=== PATIENT | male | born 1980 | race African-American/Black ===

== ENCOUNTER 2018-09-24 19:41 | Emergency (ER) | payer SELFPAY ==
--- NOTE | 2018-09-24 20:50 | ER ---
Nurse's Notes [facility] Name: Heather Quintana Age: 38 yrs Sex: Male : 1980 Arrival Date: 09/24/2018 Time: 19:45 Bed Waiting Private MD: Diagnosis: ED Course: 09/24 19:45 Patient arrived in ED. es 20:08 Patient's name was called from ER lobby. No response. 20:49 Patient's name was called from ER lobby. No response. Unable to locate patient. Will bb disposition as left without being seen by a provider. Administered Medications: No medications were administered Outcome: 20:50 Patient left the ED. bb Signatures: Gita Gillespie, RN RN Corin Barraza Brenda RN RN bb
== END 2018-09-24 20:50 | disposition left against medical advice (07) ==
LOC: ER 19:41
DX: Z53.21 Procedure and treatment not carried out due to patient leaving prior to being seen by health care provider (principal)

== ENCOUNTER 2020-02-20 16:13 | Emergency (ER) | payer SELFPAY ==
--- OUTSIDE RECORDS SUMMARY | 2020-02-20 16:16 | XMS REPORT | Continuity of Care Document ---
:1980 Author Organization [facility] t Address [address] [place] [address] Care Team Providers Name Role Phone Unavailable Unavailable Unavailable Payers Payer Name Policy Type Policy Number Effective Date Expiration Date S ource Problems This patient has no known problems. Allergies, Adverse Reactions, Alerts Allergy Allergy Status Severity Reaction(s) Onset Inactive Treating Comm ents Source Name Type Date Date Clinician No Known DA Active U [facility] All[facility]ie 6-10 Pearlan s 00:00: d 00 [facility] Medications This patient has no known medications. Procedures This patient has no known procedures. Encounters Start End Encounter Admission Attending Care Care Encounter Source Date/Time Date/Time Type Type Clinicians Facility Department ID 2017-10-24 2017-10-25 Outpatient [facility] [id number] [address] [place] [address] 00:00:00 00:00:00 [facility] Results Test Description Test Time Test Comments Results Result Comments Source CBC W/AUTO DIFF 2018-12-13 22:36:00 Test Item Value Reference Range Interpretation Comme nts WHITE BLOOD CELL (test code = 4.0 K/mm3 3.5-11.0 N WBC) RED BLOOD CELL (test code = RBC) 4.53 M/mm3 4.70-6.10 L HEMOGLOBIN (test code = HGB) 10.9 G/DL 12.3-15.9 L HEMATOCRIT (test code = HCT) 33.7 % 35.8-46.7 L MEAN CELL VOLUME (test code = 74.4 Fl 86.3-98.9 L MCV) MEAN CELL HGB (test code = MCH) 24.1 pg 28.9-34.4 L MEAN CELL HGB CONCETRATION (test 32.3 G/DL 32.1-34.5 N code = MCHC) RED CELL DISTRIBUTION WIDTH 15.8 SD 11.5-14.5 H (test code = RDW) PLATELET COUNT (test code = PLT) 126.0 K/mm3 150-450 L MEAN PLATELET VOLUME (test code 10.70 fL 7.0-9.6 H = MPV) NEUTROPHIL % (test code = NT%) 33.6 % 40-76 L LYMPHOCYTE % (test code = LY%) 42.1 % 20.5-51.1 N MONOCYTE % (test code = MO%) 13.4 % 1.7-9.3 H EOSINOPHIL % (test code = EO%) 10.6 % 0.0-6.0 H BASOPHIL % (test code = BA%) 0.3 % 0.0-2.0 N NEUTROPHIL # (test code = NT#) 1.34 K/mm3 1.8-7.6 L LYMPHOCYTE # (test code = LY#) 1.7 K/mm3 0.6-3.0 N MONOCYTE # (test code = MO#) 0.5 K/mm3 0.2-1.5 N EOSINOPHIL # (test code = EO#) 0.4 K/mm3 0.0-0.4 N BASOPHIL # (test code = BA#) 0.0 K/mm3 0.0-0.2 N MANUAL DIFF REQUIRED (test code NO DIFF/SCN CRITERIA SLIDE REVIEW CONSISTANT WITH = MDIFF) AUTO DIFFERENTI AL. COMPREHENSIVE METABOLIC [id number] 22:22:00 Test Item Value Reference Range Interpretation Comments SODIUM (test code = NA) 139 mmol/L 134-147 N POTASSIUM (test code = 3.4 mmol/L 3.4-5.0 N K) CHLORIDE (test code = 106 mmol/L 100-108 N CL) CARBON DIOXIDE (test 27 mmol/L 21-32 N code = CO2) ANION GAP (test code = 6.0 GAP calc 4.0-15.0 N GAP) GLUCOSE (test code = 89 MG/DL 70-110 N GLU) BLOOD UREA NITROGEN 16 MG/DL 7-18 N (test code = BUN) GLOMERULAR FILTRATION >=60 max estimate >60 RATE (test code = GFR) estGFR CREATININE (test code = 1.0 MG/DL 0.8-1.3 N CREAT) TOTAL PROTEIN (test code 8.3 G/DL 6.4-8.2 H = PROT) ALBUMIN (test code = 3.3 G/DL 3.4-5.0 L ALB) GLOBULIN (test code = 5.0 GM/dL GLOB) ALBUMIN/GLOBULIN RATIO 0.7 RATIO 1.2-2.2 L (test code = A/G) CALCIUM (test code = CA) 8.5 MG/DL 8.5-10.1 N BILIRUBIN TOTAL (test 0.30 MG/DL 0.2-1.2 N code = BILT) SGOT/AST (test code = 27 Unit/L 15-37 N AST) SGPT/ALT (test code = 21 Unit/L 12-78 N ALT) ALKALINE PHOSPHATASE 56 Unit/L 50-136 N TOTAL (test code = ALKP) Completed by Nursing: [id number] 22:22:00 Test Item Value Reference Range Interpretation Comments LIPASE (test code = LIP) 117 Unit/L 114-286 N Completed by Nursing: [id number] 22:22:00 Test Item Value Reference Range Interpretation Comments TROPONIN-I (test < 0.015 NG/ML 0.000-0.045 N Negative: </= 0.045 code = TROPI) Positive: >/= 0.046 Correlation wit h serial results, other cardiac markers, and cl inical findings is nec essary to determine the c linical significance of this result. Quantit ative results using d ifferent methodologies s hould not be compared to one another as nume rical results may perry yby method. Completed by Nursing: NO- XR CHEST 1 [id number] 22:20:00 Name: LAURIE ALONSO : 1980 Age/S: 38 / M [id number] Unit #: [id number] Loc: [place] [address] Phys: Brandon Elizondo MD Acct: [id number] Dis Date: Status: REG ER PHONE #: [phone] Exam Date: 12/13/2018 2201 FAX #: Reason: chest pain, left sided EXAMS: CPT: [id number] XR CHEST 1 V [id number] Fluoro Time: DAP (Gy m2): Air Kerma (mGy): EXAM: - XR CHEST 1 V HISTORY: Chest pain. COMPARISON: None available time of interpretation. FINDINGS: Single AP view of the chest is provided. Heart size and vascularity are within normal limits. The lungs are clear of focal consolidation. No effusion, pneumothorax, or acute osseous abnormality. IMPRESSION: No radiographic evidence of acute cardiopulmonary process. at 2220 Reported and signed by: Girish Grijalva M.D. CC: Brandon Elizondo MD PAGE1 Signed Report Name: LAURIE ALONSOland : 1980 Age/S: 38 / M [address] Unit #: [id number] Loc: [place] [address] Phys: Brandon Elizondo MD Acct: [id number] Dis Date: Status: REG ER PHONE #: [phone] Exam Date: 12/13/2018 2200 FAX #: Reason: chest pain, left sided EXAMS: CPT: [id number] XR CHEST 1 V [id number] Fluoro Time: DAP (Gy m2): Air Kerma (mGy): <Continued> Technologist: Javier Winter RT(R)(CT); ... Trnscb Date/Time: 12/13/2018 (2219) [email or web address] Orig Print D/T: S: 12/13/2018 (0) PAGE 2 Signed ReportCB W/AUTO [id number] 22:06:00 Test Item Value Reference Range Interpretation Comments WHITE BLOOD CELL (test code = 4.0 K/mm3 3.5-11.0 N WBC) RED BLOOD CELL (test code = RBC) 4.53 M/mm3 4.70-6.10 L HEMOGLOBIN (test code = HGB) 10.9 G/DL 12.3-15.9 L HEMATOCRIT (test code = HCT) 33.7 % 35.8-46.7 L MEAN CELL VOLUME (test code = 74.4 Fl 86.3-98.9 L MCV) MEAN CELL HGB (test code = MCH) 24.1 pg 28.9-34.4 L MEAN CELL HGB CONCETRATION (test 32.3 G/DL 32.1-34.5 N code = MCHC) RED CELL DISTRIBUTION WIDTH (test 15.8 SD 11.5-14.5 H code = RDW) PLATELET COUNT (test code = PLT) 126.0 K/mm3 150-450 L MEAN PLATELET VOLUME (test code = 10.70 fL 7.0-9.6 H MPV) NEUTROPHIL % (test code = NT%) % 40-76 L LYMPHOCYTE % (test code = LY%) % 20.5-51.1 N MONOCYTE % (test code = MO%) % 1.7-9.3 H EOSINOPHIL % (test code = EO%) % 0.0-6.0 H BASOPHIL % (test code = BA%) % 0.0-2.0 N NEUTROPHIL # (test code = NT#) K/mm3 1.8-7.6 L LYMPHOCYTE # (test code = LY#) K/mm3 0.6-3.0 N MONOCYTE # (test code = MO#) K/mm3 0.2-1.5 N EOSINOPHIL # (test code = EO#) K/mm3 0.0-0.4 N BASOPHIL # (test code = BA#) K/mm3 0.0-0.2 N MANUAL DIFF REQUIRED (test code = DIFF/SCN CRITERIA MDIFF)
--- NOTE | 2020-02-20 16:27 | ER ---
Nurse's Notes [facility] Name: Heather Quintana Age: 39 yrs Sex: Male : 1980 Arrival Date: 02/20/2020 Time: 16:16 Bed 15 Private MD: Diagnosis: Chest pain, unspecified Presentation: 02/19 16:24 Chief complaint: [place] [employer], he was going to [place] longterm started having anxiety c/o tw2 chest pain, states he is better now and is going to [facility]. Coronavirus screen: Client denies travel out of the [place] in the last 14 days. At this time, the client does not indicate any symptoms associated with coronavirus-19. Ebola Screen: Patient denies travel to an Ebola-affected area in the 21 days before illness onset. Initial Sepsis Screen: Does the patient meet any 2 criteria? No. Patient's initial sepsis screen is negative. Does the patient have a suspected source of infection? No. Patient's initial sepsis screen is negative. Risk Assessment: Do you want to hurt yourself or someone else? Patient reports no desire to harm self or others. Onset of symptoms was February 20, 2020. 16:24 Method Of Arrival: Law Enforcement: [facility] tw2 16:24 Acuity: JERONIMO 3 tw2 16:29 Note provider Tressa Pelaez PA at bedside at this time. tw2 Triage Assessment: 16:26 General: Appears in no apparent distress. Behavior is calm, cooperative, appropriate tw2 for age. Pain: Denies pain. EENT: No signs and/or symptoms were reported regarding the EENT system. Neuro: Level of Consciousness is awake, alert, obeys commands, Oriented to person, place, time, situation. Cardiovascular: Denies chest pain, shortness of breath, Heart tones S1 S2 Patient's skin is warm and dry. Respiratory: Airway is patent Respiratory effort is even, unlabored, Respiratory pattern is regular, symmetrical, Breath sounds are clear bilaterally. GI: No signs and/or symptoms were reported involving the gastrointestinal system. Abdomen is flat, Bowel sounds present X 4 quads. : No signs and/or symptoms were reported regarding the genitourinary system. Derm: No signs and/or symptoms reported regarding the dermatologic system. Musculoskeletal: Range of motion: intact in all extremities. Historical: - Allergies: 16:28 No Known Allergies; tw2 - Home Meds: 16:28 None [Active]; tw2 - PMHx: 16:28 Anxiety; chest pain; clausterphobic; Depression; Hernia; tw2 - Immunization history:: Adult Immunizations. - Social history:: Smoking status: . Screenin: Abuse screen: Denies threats or abuse. Nutritional screening: No deficits noted. tw2 Tuberculosis screening: No symptoms or risk factors identified. Fall Risk None identified. Assessment: 16:16 Reassessment: pt states "i feel no pain now i am just ready to go". tw2 16:24 Pain: Pain does not radiate. Pain began suddenly. tw2 16:26 Reassessment: see triage assessment. tw2 16: Reassessment:. tw2 16:39 Reassessment: Patient appears in no apparent distress at this time. No changes from tw2 previously documented assessment. Patient and/or family updated on plan of care and expected duration. Pain level reassessed. Patient is alert, oriented x 3, equal unlabored respirations, skin warm/dry/pink. Vital Signs: 16:24 BP 134 / 96; Pulse 71; Resp 17; Temp 98.1; Pulse Ox 98% on R/A; Pain 0/10; tw2 ED Course: 16:16 Patient arrived in ED. tw2 16:22 Benigno Flores PA is PHCP. jr8 16:22 Ramón Hills MD is Attending Physician. jr8 16:24 Tamra Simms RN is Primary Nurse. tw2 16:24 Arm band placed on. tw2 16:26 Triage completed. tw2 16:28 Bed in low position. Call light in reach. equipment monitor phototypesetting on. Pulse ox on. NIBP on. tw2 16:39 No provider procedures requiring assistance completed. Patient did not have IV access tw2 during this emergency room visit. Patient maintains SpO2 saturation greater than 95% on room air. Administered Medications: No medications were administered Outcome: 16: Discharge ordered by . jr8 16:39 Discharged to Law Enforcement tw2 16:39 Condition: stable 16:39 Discharge instructions given to patient, police, Instructed on discharge instructions, follow up and referral plans. Demonstrated understanding of instructions, follow-up care. 16:39 Patient left the ED. tw2 Signatures: Benigno lFores PA PA jr8 Tamra Simms RN RN tw2 Corrections: (The following items were deleted from the chart) 19:14 16:28 Reassessment: see triage assessment tw2 tw2
--- NOTE | 2020-02-20 16:27 | EDPHYS ---
Physician Documentation [facility] Name: Heather Quintana Age: 39 yrs Sex: Male : 1980 Arrival Date: 02/20/2020 Time: 16:16 Bed 15 Private MD: ED Physician Ramón Hills HPI: 02/19 16:24 This 39 yrs old Black Male presents to ER via Unassigned with complaints of Chest Pain jr8 > 30 y/o. 16:24 The patient or guardian reports chest pain that is located primarily in the substernal jr8 area. The pain does not radiate. Associated signs and symptoms: The patient has no apparent associated signs or symptoms. The chest pain is described as sharp. Duration: The patient or guardian reports a single episode, that is now resolved. Modifying factors: The symptoms are alleviated by rest, the symptoms are aggravated by emotionally stressful situations. Severity of pain: At its worst the pain was mild in the emergency department the pain has resolved. The patient has not experienced similar symptoms in the past. The patient has not recently seen a physician. Patient brought in by PD for medical clearance after he started to complain of chest pain. Patient stated that he is now better and feels that it was anxiety related. No symptoms at this time and wants to be discharged . Historical: - Allergies: 16:28 No Known Allergies; tw2 - Home Meds: 16:28 None [Active]; tw2 - PMHx: 16:28 Anxiety; chest pain; clausterphobic; Depression; Hernia; tw2 - Immunization history:: Adult Immunizations. - Social history:: Smoking status: . ROS: 16:24 Eyes: Negative for injury, pain, redness, and discharge, ENT: Negative for injury, jr8 pain, and discharge, Neck: Negative for injury, pain, and swelling, Respiratory: Negative for shortness of breath, cough, wheezing, and pleuritic chest pain, Abdomen/GI: Negative for abdominal pain, nausea, vomiting, diarrhea, and constipation, Back: Negative for injury and pain, MS/Extremity: Negative for injury and deformity, Skin: Negative for injury, rash, and discoloration, Neuro: Negative for headache, weakness, numbness, tingling, and seizure. 16:24 Cardiovascular: Positive for chest pain, Negative for orthopnea, palpitations, paroxysmal nocturnal dyspnea. Exam: 16:24 Eyes: Pupils equal round and reactive to light, extra-ocular motions intact. Lids and jr8 lashes normal. Conjunctiva and sclera are non-icteric and not injected. Cornea within normal limits. Periorbital areas with no swelling, redness, or edema. ENT: Nares patent. No nasal discharge, no septal abnormalities noted. Tympanic membranes are normal and external auditory canals are clear. Oropharynx with no redness, swelling, or masses, exudates, or evidence of obstruction, uvula midline. Mucous membranes moist. Neck: Trachea midline, no thyromegaly or masses palpated, and no cervical lymphadenopathy. Supple, full range of motion without nuchal rigidity, or vertebral point tenderness. No Meningismus. Cardiovascular: Regular rate and rhythm with a normal S1 and S2. No gallops, murmurs, or rubs. Normal PMI, no JVD. No pulse deficits. Respiratory: Lungs have equal breath sounds bilaterally, clear to auscultation and percussion. No rales, rhonchi or wheezes noted. No increased work of breathing, no retractions or nasal flaring. Abdomen/GI: Soft, non-tender, with normal bowel sounds. No distension or tympany. No guarding or rebound. No evidence of tenderness throughout. Back: No spinal tenderness. No costovertebral tenderness. Full range of motion. Skin: Warm, dry with normal turgor. Normal color with no rashes, no lesions, and no evidence of cellulitis. MS/ Extremity: Pulses equal, no cyanosis. Neurovascular intact. Full, normal range of motion. Neuro: Awake and alert, GCS 15, oriented to person, place, time, and situation. Cranial nerves II-XII grossly intact. Motor strength 5/5 in all extremities. Sensory grossly intact. Cerebellar exam normal. Normal gait. Vital Signs: 16:24 BP 134 / 96; Pulse 71; Resp 17; Temp 98.1; Pulse Ox 98% on R/A; Pain 0/10; tw2 MDM: 16:22 Patient medically screened. jr8 16:26 ESTEFANI Risk Score: TOTAL SCORE = 1. Data reviewed: vital signs, nurses notes, EKG, and as jr8 a result, I will discharge patient. Data interpreted: Pulse oximetry: on room air is 100 %. Interpretation: normal. Counseling: I had a detailed discussion with the patient and/or guardian regarding: the historical points, exam findings, and any diagnostic results supporting the discharge/admit diagnosis, the need for outpatient follow up, a family practitioner, to return to the emergency department if symptoms worsen or persist or if there are any questions or concerns that arise at home. 02/19 16:26 Order name: EKG; Complete Time: 16:26 jr8 02/19 16:26 Order name: EKG - Nurse/Tech; Complete Time: 16:38 jr8 Administered Medications: No medications were administered Disposition: 17:32 Co-signature as Attending Physician, Ramón Hills MD. rn Disposition: 02/20/20 16:26 Discharged to Home. Impression: Chest pain, unspecified. - Condition is Stable. - Discharge Instructions: Nonspecific Chest Pain. - Medication Reconciliation Form, Thank You Letter, Antibiotic Education, Prescription Opioid Use form. - Follow up: Private Physician; When: As needed; Reason: Recheck today's complaints, Continuance of care, Re-evaluation by your physician. - Problem is new. - Symptoms are resolved. Signatures: Ramón Hills MD MD rn Roszak, Josh, PA PA jr8 Tamra Simms RN RN tw2 Corrections: (The following items were deleted from the chart) 16:39 16:26 02/20/2020 16:26 Discharged to Home. Impression: Chest pain, unspecified. tw2 Condition is Stable. Forms are Medication Reconciliation Form, Thank You Letter, Antibiotic Education, Prescription Opioid Use. Follow up: Private Physician; When: As needed; Reason: Recheck today's complaints, Continuance of care, Re-evaluation by your physician. Problem is new. Symptoms are resolved. jr8
[2020-02-20 17:05] VITALS: BP 134/96; TEMP 98.1; O2SAT 98
--- NOTE | 2020-02-22 07:43 | EKG ---
Test Date: 2020-02-20 Test Time: 16:34:04 Desizing Machine Offbearer: MARK MEASUREMENT RESULTS: Intervals: Rate: 80 AR: 100 QRSD: 102 QT: 372 QTc: 429 [place]: P: 50 AR: 100 QRS: 64 T: 61 INTERPRETIVE STATEMENTS: Sinus rhythm with short AR Otherwise normal ECG Compared to ECG 03/13/2017 01:15:21 Short AR interval now present Right-axis deviation no longer present Incomplete right bundle-branch block no longer present Electronically Signed On 02-22-20 07:40:07 CDT by Ephraim Rodriguez
== END 2020-02-20 16:39 | disposition home or self-care (01) ==
LOC: ER 16:13
DX: R07.9 Chest pain, unspecified (principal); F41.9 Anxiety disorder, unspecified
CPT/HCPCS: 93005; 99284

== ENCOUNTER 2020-03-19 03:43 | Emergency (ER) | payer SELFPAY ==
--- OUTSIDE RECORDS SUMMARY | 2020-03-19 03:45 | XMS REPORT | Continuity of Care Document ---
:[address] [facility] t Address [address] [place] [address] Care Team Providers Name Role Phone Unavailable Unavailable Unavailable Payers Payer Name Policy Type Policy Number Effective Date Expiration Date S ource Problems This patient has no known problems. Allergies, Adverse Reactions, Alerts Allergy Allergy Status Severity Reaction(s) Onset Inactive Treating Comm ents Source Name Type Date Date Clinician No Known DA Active U [facility] Allergie 6-10 [place] s 00:00: d 00 [facility] Medications This patient has no known medications. Procedures This patient has no known procedures. Encounters Start End Encounter Admission Attending Care Care Encounter Source Date/Time Date/Time Type Type Clinicians Facility Department ID 2017-10-24 2017-10-25 [facility] [id number] [address] [place] [address] 00:00:00 00:00:00 [facility] Results Test Description Test Time Test Comments [...] = MDIFF) AUTO DIFFERENTI AL. COMPREHENSIVE METABOLIC [id number] 22:22:00 Test Item Value Reference Range Interpretation [...] (test code = ALKP) Completed by Nursing: [id number] 22:22:00 Test Item Value Reference Range Interpretation Comments LIPASE (test code = LIP) 117 Unit/L 114-286 N Completed by Nursing: [id number] 22:22:00 Test Item Value Reference Range Interpretation [...] Completed by Nursing: NO- XR CHEST 1 [id number] 22:20:00 Name: LAURIE ALONSO : 1980 Age/S: 38 / M [id number] Unit #: [id number] Loc: [place] [address] Phys: Brandon Elizondo MD Acct: [id number] Dis Date: Status: REG ER PHONE #: [phone] Exam Date: 12/13/2018 2208 FAX #: Reason: chest pain, left sided EXAMS: CPT: [id number] XR CHEST 1 V 45601 Fluoro Time: DAP (Gy m2): Air Kerma [...] ALONSOland : 1980 Age/S: 38 / M [address] Unit #: [id number] Loc: [place] [address] Phys: Brandon Elizondo MD Acct: [id number] Dis Date: Status: REG ER PHONE #: [phone] Exam Date: 12/13/2018 2200 FAX #: Reason: chest pain, left sided EXAMS: CPT: [id number] XR CHEST 1 V 77184 Fluoro Time: DAP (Gy m2): Air Kerma (mGy): <Continued> Technologist: Javier Winter RT(R)(CT); ... Trnscb Date/Time: 12/13/2018 (2219) [email or web address] Orig Print D/T: S: 12/13/2018 () PAGE 2 Signed ReportCB W/AUTO [id number] 22:06:00 Test Item Value Reference Range Interpretation [...]
--- NOTE | 2020-03-19 04:23 | EDPHYS ---
Physician Documentation [facility] Name: Heather Quintana Age: 39 yrs Sex: Male : 1980 Arrival Date: 03/19/2020 Time: 03:44 Bed 14 Private MD: ED Physician Ramón Hills HPI: 03/19 03:59 This 39 yrs old Black Male presents to ER via EMS with complaints of chest pain. rn 03:59 The patient or guardian reports chest pain that is located primarily in the substernal rn area, anterior chest wall. The pain does not radiate. The chest pain is described as sharp, stabbing. Duration: The patient or guardian reports multiple episodes. Modifying factors: The symptoms are alleviated by nothing. the symptoms are aggravated by breathing. Severity of pain: At its worst the pain was mild in the emergency department the pain has improved. The patient has experienced similar episodes in the past. Reports intermittent sharp stabbing chest pain for months, no trauma, + smoker, no fever, does not feel sick, no famhx of cardiac problems at his age. No abd pain. No vomiting/diaphoresis/sob. . Historical: - Allergies: 03:53 No Known Allergies; rv - PMHx: 03:53 Anxiety; chest pain; clausterphobic; Depression; Hernia; HIV; rv - PSHx: 03:53 None; rv - Immunization history:: Adult Immunizations up to date. - Social history:: Smoking status: Patient denies any tobacco usage or history of. Patient uses street drugs, marijuana. - Family history:: not pertinent. - Hospitalizations: : No recent hospitalization is reported. ROS: 03:59 Constitutional: Negative for fever, chills, and weight loss, Eyes: Negative for injury, rn pain, redness, and discharge, Neck: Negative for injury, pain, and swelling, Cardiovascular: Negative for palpitations, and edema, Respiratory: Negative for shortness of breath, cough, wheezing Abdomen/GI: Negative for abdominal pain, nausea, vomiting, diarrhea, and constipation, MS/Extremity: Negative for injury and deformity, Skin: Negative for injury, rash, and discoloration, Neuro: Negative for headache, weakness, numbness, tingling, and seizure. Exam: 03:59 Constitutional: This is a well developed, well nourished patient who is awake, alert, rn and in no acute distress. Head/Face: Normocephalic, atraumatic. Cardiovascular: Regular rate and rhythm. No pulse deficits. Respiratory: Speaking full sentences. No increased work of breathing, no retractions or nasal flaring. Abdomen/GI: soft, non-tender Skin: Warm, dry MS/ Extremity: Pulses equal, no cyanosis. Neurovascular intact. Full, normal range of motion. Equal circumference. Neuro: Awake and alert, GCS 15 04:01 ECG was reviewed by the Attending Physician. rn Vital Signs: 03:51 Weight 86.18 kg; Height 6 ft. 2 in. (187.96 cm); Pain 2/10; rv 04:00 BP 123 / 89; Pulse 76; Resp 18; Temp 98.2; Pulse Ox 99% on R/A; wh 03:51 Body Mass Index 24.39 (86.18 kg, 187.96 cm) rv MDM: 03:48 Patient medically screened. rn 04:12 Differential diagnosis: acute myocardial infarction, acute pericarditis, coronary rn artery disease chest wall pain, costochondritis, pleurisy, pneumonia, pneumothorax. ED course: Pt now refusing tests and cxr, reports feels fine, and wants to go home. Requesting to leave. Explained risk of leaving prior to results, he understands, pain most likely pleurisy from smoking habits, but recommend testing given HIV status. Patient asks to leave.. 04:19 Data reviewed: vital signs, nurses notes, EKG. rn 03/19 03:58 Order name: CBC with Diff rn 03/19 03:58 Order name: Basic Metabolic Panel rn 03/19 03:58 Order name: IV Start; Complete Time: 04:04 rn 03/19 03:58 Order name: Troponin (emerg Dept Use Only) rn 03/19 03:58 Order name: EKG; Complete Time: 03:59 rn 03/19 03:58 Order name: EKG - Nurse/Tech; Complete Time: 04:04 rn EC:01 Rate is 71 beats/min. Rhythm is regular. QRS [place] is Normal. SD interval is normal. QRS rn interval is normal. QT interval is normal. No Q waves. T waves are Normal. No ST changes noted. Clinical impression: Normal ECG. Interpreted by me. Reviewed by me. Administered Medications: No medications were administered Disposition: 03/19/20 04:23 Patient has left against medical advice. Impression: Chest pain, unspecified. - Patients states they are going to Home. - Condition is Stable. - Discharge Instructions: Nonspecific Chest Pain, Pleurisy, Steps to Quit Smoking. Follow up: Private Physician; When: As needed; Reason: Recheck today's complaints, Re-evaluation by your physician. - Problem is an ongoing problem. - Symptoms are unchanged. Signatures: Dispatcher [employer] EDAK Ramón Hills MD MD rn Habalo, Winsy wh Vicente, Ronaldo, RN RN rv Corrections: (The following items were deleted from the chart) 04:26 04:23 03/19/2020 04:23 Patients has left against medical advice. Impression: Chest wh pain, unspecified. Patient states they are going to Home. Condition is Stable. Follow up: Private Physician; When: As needed; Reason: Recheck today's complaints, Re-evaluation by your physician. Problem is an ongoing problem. Symptoms are unchanged. rn
--- NOTE | 2020-03-19 04:23 | ER ---
Nurse's Notes [facility] Name: Heather Quintana Age: 39 yrs Sex: Male : 1980 Arrival Date: 03/19/2020 Time: 03:44 Bed 14 Private MD: Diagnosis: Chest pain, unspecified Presentation: 03/19 03:51 Chief complaint: EMS states: SHARP PAIN ON AND OFF FOR A WHILE NOW. MIDSTERNAL. GIVEN rv 324MG PO ON THE WAY. CHEST PAIN IS RELIEVED. Coronavirus screen: Client denies travel out of the [place] in the last 14 days. At this time, the client does not indicate any symptoms associated with coronavirus-19. Ebola Screen: No symptoms or risks identified at this time. Initial Sepsis Screen: Does the patient meet any 2 criteria? No. Patient's initial sepsis screen is negative. Does the patient have a suspected source of infection? No. Patient's initial sepsis screen is negative. Risk Assessment: Do you want to hurt yourself or someone else? Patient reports no desire to harm self or others. Onset of symptoms is unknown. 03:51 Method Of Arrival: EMS: [facility] rv 03:51 Acuity: JERONIMO 3 rv Historical: - Allergies: 03:53 No Known Allergies; rv - PMHx: 03:53 Anxiety; chest pain; clausterphobic; Depression; Hernia; HIV; rv - PSHx: 03:53 None; rv - Immunization history:: Adult Immunizations up to date. - Social history:: Smoking status: Patient denies any tobacco usage or history of. Patient uses street drugs, marijuana. - Family history:: not pertinent. - Hospitalizations: : No recent hospitalization is reported. Assessment: 04:15 Reassessment: Pt asking for her mother to be allowed in the room, explained [facility] policy regarding not allowing visitors. Pt adamant and requesting mother to be allowed and refusing treatment and diagnostics, notified Charge Nurse. 04:20 Reassessment: Charge Nurse speaking with Pt. Vital Signs: 03:51 Weight 86.18 kg; Height 6 ft. 2 in. (187.96 cm); Pain 2/10; rv 04:00 BP 123 / 89; Pulse 76; Resp 18; Temp 98.2; Pulse Ox 99% on R/A; wh 03:51 Body Mass Index 24.39 (86.18 kg, 187.96 cm) rv ED Course: 03:44 Patient arrived in ED. 03:44 Jessy Acosta is Primary Nurse. 03:48 Ramón Hills MD is Attending Physician. rn 03:52 Triage completed. rv 03:53 Arm band placed on right wrist. Patient placed in the treatment room, on a stretcher, rv Patient notified of wait time. 03:55 EKG done, by ED staff, reviewed by Ramón Hills MD. 04:00 Inserted saline lock: 20 gauge in right antecubital area, using aseptic technique. Blood collected. 04:20 IV discontinued, intact, bleeding controlled, No redness/swelling at site. Administered Medications: No medications were administered Outcome: 04:23 AMA Other Pt just signed name on form but didn't leave signature 04:23 Condition: stable 04:23 Instructed on POC 04:26 Patient left the ED. Signatures: Ramón Hills MD MD rn Habalo, Winsy Thomas Ye, RN RN rv
[2020-03-19 04:37] VITALS: BP 123/89; TEMP 98.2; O2SAT 99
[2020-03-19 04:39] LABS: Absolute Lymphocytes (CBC) 1.3 K/uL (0.7-4.9); Basophils % 0.8 % (0-1.3); Lymphocytes % 36.1 % (15.3-44.8); MPV 9.4 fL (7.6-11.3); RBC Red Blood Cell Count 4.69 M/uL (4.33-5.43)
[2020-03-19 04:55] LABS: BUN Blood Urea Nitrogen 16 mg/dL (7-18); Bicarbonate 24 mmol/L (21-32); Glucose Level 81 mg/dL (74-106); Potassium 3.4 mmol/L (3.5-5.1); Sodium Level 142 mmol/L (136-145); Troponin (Emerg Dept Use Only) < 0.02 ng/mL (0.0-0.045)
== END 2020-03-19 04:26 | disposition left against medical advice (07) ==
LOC: ER 03:43
DX: R07.9 Chest pain, unspecified (principal); F17.210 Nicotine dependence, cigarettes, uncomplicated; Z21 Asymptomatic human immunodeficiency virus [HIV] infection status
CPT/HCPCS: 36415; 80048; 84484; 85025; 93005; 99284